=== PATIENT | female | born 1975 | race Two or more races ===

== ENCOUNTER → 2016-10-19 | Outpatient (CLI) | payer BC ==
[~2016-10-19] MED LIST: BUTA-91; HYDR-1421
[2016-10-19 08:40] LABS: Urine Bilirubin Negative (Negative); Urine Blood Negative /uL (Negative); Urine Color Yellow (Yellow); Urine Glucose Normal (Normal); Urine Ketone Negative (Negative); Urine Mucus FEW (None Seen); Urine Nitrite Negative (Negative); Urine RBC 3 /hpf (0 - 4); Urine Squamous Epithelial Cell FEW /hpf (<5); Urine Urobilinogen Normal (Negative)
[2016-10-19 08:41] LABS: Basophils # (auto) 0 uL; Basophils % (auto) 0.6 % (0.0-2.0); CONDITION Y; Eosinophils # (auto) 0.1 uL; Eosinophils % (auto) 1.7 % (0.0-7.0); Hematocrit 41.2 % (36.0-46.0); Hemoglobin 13.9 g/dL (12.2-16.2); Mean Corpuscular Hemoglobin 31.1 pg (28.0-32.0); Mean Corpuscular Hgb Conc. 33.8 g/dL (32.0-36.0); Mean Corpuscular Volume 92.2 fL (80.0-100.0); Monocytes # (auto) 0.6 uL; Monocytes % (auto) 9.3 % (0.0-12.0); Neutrophils # (auto) 3.7 uL; Neutrophils % (auto) 57.4 % (37.0-80.0); Platelet Count (auto) 243 10^3/uL (140-450); White Blood Cell 6.5 10^3/uL (4.4-10.8)
[2016-10-19 08:53] LABS: Albumin 3.8 g/dL (3.4-5.0); BUN/Creatinine Ratio 9.2; Bilirubin, Total 0.4 mg/dL (0.2-1.0); Potassium 4.1 mmol/L (3.5-5.1); Total Protein 7.1 g/dL (6.4-8.2)
== END | disposition home or self-care (01) ==
LOC: LAB 08:00
DX: R53.83 Other fatigue (principal); E56.9 Vitamin deficiency, unspecified
CPT/HCPCS: 36415; 80053; 80061; 81001; 82306; 85025

== ENCOUNTER → 2017-06-21 | Outpatient (CLI) | payer BC ==
[2017-06-21 08:44] LABS: Basophils # (auto) 0.1 uL; Basophils % (auto) 0.8 % (0.0-2.0); Eosinophils # (auto) 0.1 uL; Eosinophils % (auto) 0.8 % (0.0-7.0); Hematocrit 43.7 % (36.0-46.0); Lymphocytes # (auto) 2.4 uL; Lymphocytes % (auto) 31.3 % (10.0-50.0); Mean Corpuscular Hemoglobin 31.2 pg (28.0-32.0); Mean Corpuscular Hgb Conc. 34.2 g/dL (32.0-36.0); Mean Corpuscular Volume 91.3 fL (80.0-100.0); Monocytes # (auto) 0.8 uL; Monocytes % (auto) 9.7 % (0.0-12.0); Neutrophils # (auto) 4.5 uL; Neutrophils % (auto) 57.4 % (37.0-80.0); Platelet Count (auto) 245 10^3/uL (140-450); Red Blood Cells 4.79 10^6/uL (4.0-5.20); White Blood Cell 7.8 10^3/uL (4.4-10.8)
[2017-06-21 09:10] LABS: Albumin 4.2 g/dL (3.4-5.0); BUN/Creatinine Ratio 18.1; Bilirubin, Total 0.9 mg/dL (0.2-1.0); Calcium 9.3 mg/dL (8.5-10.1); Potassium 4.2 mmol/L (3.5-5.1)
== END | disposition home or self-care (01) ==
LOC: LAB 08:08
PROVIDERS: ATTEND Physician Assistant
DX: Z00.01 Encounter for general adult medical examination with abnormal findings (principal); G43.109 Migraine with aura, not intractable, without status migrainosus; M25.571 Pain in right ankle and joints of right foot; G89.29 Other chronic pain; F17.200 Nicotine dependence, unspecified, uncomplicated
CPT/HCPCS: 36415; 80053; 80061; 85025

== ENCOUNTER → 2017-06-27 | Outpatient (CLI) | payer BC ==
[2017-06-27 12:26] LABS: Free T4 (Free Thyroxine) 1.07 ng/dL (0.89-1.76); T3 Total 1.03 ng/mL (0.60-1.81)
[2017-06-27 12:27] LABS: Free T3 2.63 pg/mL (2.3-4.2)
== END | disposition home or self-care (01) ==
LOC: LAB 10:56
PROVIDERS: ATTEND Physician Assistant
DX: G43.109 Migraine with aura, not intractable, without status migrainosus (principal); F17.200 Nicotine dependence, unspecified, uncomplicated; E11.9 Type 2 diabetes mellitus without complications
CPT/HCPCS: 36415; 83036; 84439; 84443; 84480; 84481

== ENCOUNTER → 2017-07-12 | Outpatient (CLI) | payer BC | END | disposition home or self-care (01) | LOC: LAB 07:21 | PROVIDERS: ATTEND Physician Assistant | DX: H54.7 Unspecified visual loss (principal); E11.9 Type 2 diabetes mellitus without complications; G43.109 Migraine with aura, not intractable, without status migrainosus | CPT/HCPCS: 36415; 82565; 84520 ==

== ENCOUNTER → 2018-12-26 | Outpatient (CLI) | payer BC ==
[2018-12-26 08:47] LABS: Basophils # (auto) 0 uL; Basophils % (auto) 0.7 % (0.0-2.0); Eosinophils # (auto) 0 uL; Eosinophils % (auto) 0.7 % (0.0-7.0); Hematocrit 45.2 % (36.0-46.0); Hemoglobin 15.6 g/dL (12.2-16.2); Lymphocytes # (auto) 1.6 uL; Lymphocytes % (auto) 25.6 % (10.0-50.0); Mean Corpuscular Hemoglobin 31.8 pg (28.0-32.0); Mean Corpuscular Hgb Conc. 34.5 g/dL (32.0-36.0); Monocytes # (auto) 0.5 uL; Monocytes % (auto) 7.7 % (0.0-12.0); Neutrophils % (auto) 65.3 % (37.0-80.0); Nucleated Red Blood Cells % 0.1 %; Platelet Count (auto) 237 10^3/uL (140-450); Red Blood Cells 4.91 10^6/uL (4.0-5.20); Red Cell Distribution Width 13.1 % (11.8-14.3); White Blood Cell 6.1 10^3/uL (4.4-10.8)
[2018-12-26 09:07] LABS: Albumin 4.5 g/dL (3.4-5.0); Calcium 9.4 mg/dL (8.5-10.1)
[2018-12-26 09:12] LABS: BUN/Creatinine Ratio 13.4; Bilirubin, Total 0.8 mg/dL (0.2-1.0); Total Protein 7.9 g/dL (6.4-8.2)
[2018-12-26 09:19] LABS: Free T4 (Free Thyroxine) 1.15 ng/dL (0.89-1.76); T3 Total 1.17 ng/mL (0.60-1.81)
[2018-12-27 05:06] LABS: RPR Non Reactive (Non Reactive)
== END | disposition home or self-care (01) ==
LOC: LAB 07:34
PROVIDERS: ATTEND Physician Assistant
DX: Z00.00 Encounter for general adult medical examination without abnormal findings (principal); R53.83 Other fatigue; M17.9 Osteoarthritis of knee, unspecified; F41.9 Anxiety disorder, unspecified; F43.9 Reaction to severe stress, unspecified; I10 Essential (primary) hypertension; F17.210 Nicotine dependence, cigarettes, uncomplicated; Z88.8 Allergy status to other drugs, medicaments and biological substances
CPT/HCPCS: 36415; 80053; 80061; 84439; 84443; 84480; 85025; 86592; 86695; 86696; 86703

== ENCOUNTER → 2019-02-22 | Outpatient (CLI) | payer BC ==
[2019-02-22 16:14] LABS: CRP High Sensitivity 0.3 mg/dL (< 0.3)
== END | disposition home or self-care (01) ==
LOC: LAB 15:14
PROVIDERS: ATTEND Physician Assistant
DX: M06.4 Inflammatory polyarthropathy (principal); R53.83 Other fatigue; H47 Other disorders of optic [2nd] nerve and visual pathways; G89.29 Other chronic pain
CPT/HCPCS: 36415; 82550; 86038; 86141; 86431

== ENCOUNTER → 2019-05-24 | Outpatient (CLI) | payer BC | END | disposition home or self-care (01) | LOC: LAB 10:34 | PROVIDERS: ATTEND Internal Medicine Rheumatology | DX: M32.10 Systemic lupus erythematosus, organ or system involvement unspecified (principal); M05.79 Rheumatoid arthritis with rheumatoid factor of multiple sites without organ or systems involvement; M33.20 Polymyositis, organ involvement unspecified | CPT/HCPCS: 36415; 85652; 86141; 86200 ==

== ENCOUNTER → 2019-09-11 | Outpatient (CLI) | payer OTHER | END | disposition home or self-care (01) | LOC: LAB 16:24 | PROVIDERS: ATTEND Physician Assistant | DX: Z20.828 Contact with and (suspected) exposure to other viral communicable diseases (principal) ==

== ENCOUNTER → 2019-12-30 | Outpatient (CLI) | payer BC ==
[2019-12-30 08:43] LABS: CRP High Sensitivity 0.09 mg/dL (< 0.3)
== END | disposition home or self-care (01) ==
LOC: LAB 07:50
PROVIDERS: ATTEND Internal Medicine Rheumatology
DX: M60.9 Myositis, unspecified (principal)
CPT/HCPCS: 36415; 82550; 85652; 86141

== ENCOUNTER → 2020-02-01 | Outpatient (CLI) | payer OTHER | END | disposition home or self-care (01) | LOC: LAB 13:23 | PROVIDERS: ATTEND Physician Assistant | DX: U07.1 COVID-19 (principal) | CPT/HCPCS: 36415; 87426 ==

== ENCOUNTER 2020-07-24 06:15 | Day surgery (SDC) | payer BC ==
[2020-07-21 11:00] LABS: Basophils # (auto) 0.1 10 ^3/uL (0-0.2); Basophils % (auto) 1.2 % (0.0-2.0); Eosinophils # (auto) 0.1 10 ^3/uL (0-0.8); Eosinophils % (auto) 1.3 % (0.0-7.0); Hematocrit 39.9 % (36.0-46.0); Lymphocytes # (auto) 2.3 10 ^3/uL (0.4-5.4); Lymphocytes % (auto) 34.2 % (10.0-50.0); Mean Corpuscular Hemoglobin 32.4 pg (28.0-32.0); Mean Corpuscular Hgb Conc. 35.2 g/dL (32.0-36.0); Mean Corpuscular Volume 92.1 fL (80.0-100.0); Monocytes # (auto) 0.6 10 ^3/uL (0-1.3); Monocytes % (auto) 9.1 % (0.0-12.0); Neutrophils # (auto) 3.6 10 ^3/uL (1.6-8.6); Neutrophils % (auto) 54.2 % (37.0-80.0); Nucleated Red Blood Cells % 0.1 %; Platelet Count (auto) 249 10^3/uL (140-450); Red Blood Cells 4.33 10^6/uL (4.0-5.20); Red Cell Distribution Width 13.1 % (11.8-14.3); White Blood Cell 6.7 10^3/uL (4.4-10.8)
[2020-07-21 11:15] LABS: INR 0.99 (0.9-1.15); Partial Thromboplastin Time 28.5 sec (23.0-31.2)
[2020-07-21 11:16] LABS: Urine Bacteria NONE SEEN /hpf (None Seen); Urine Blood 3+ /uL (Negative); Urine Mucus FEW (None Seen); Urine Specific Gravity 1.027 (1.001-1.035); Urine WBC 5 /hpf (0 - 5)
[2020-07-21 11:30] LABS: Potassium 4.5 mmol/L (3.5-5.1)
[2020-07-21 11:36] LABS: BUN/Creatinine Ratio 22.2; Bilirubin, Total 0.4 mg/dL (0.2-1.0); Calcium 8.7 mg/dL (8.5-10.1); Total Protein 7.5 g/dL (6.4-8.2)
[~2020-07-24] VITALS: Ht 160 cm; Wt 87.1 kg
[~2020-07-24 06:15] MED LIST changes: +ASPITAB34 PO; -BUTA-91; -HYDR-1421; +HYDR-4069 PO; +IBUP200C14 PO
[2020-07-24] MEDS ORDERED: ceFAZolin 1GM/50ML 100 ML IV ONE (06:36)
[2020-07-24] MEDS ORDERED: LIDOCAINE 1% HCL (LOCAL ANESTH.) INJ 20ML MDV ONE (06:49)
[2020-07-24] MEDS ORDERED: fentaNYL CITRATE 100 MCG/2 ML VL ONE (07:07)
[2020-07-24] MEDS ORDERED: MEPERIDINE HCL (25 MG/ML) 1ML VIAL ONE (07:07)
[2020-07-24] MEDS ORDERED: ONDANSETRON HCL 4 MG/2 ML VIAL ONE (07:07)
[2020-07-24] MEDS ORDERED: MIDAZOLAM HCL 1MG/1ML-2 ML VIAL ONE (07:07)
[2020-07-24] MEDS ORDERED: PROPOFOL 10 MG/ML 20 ML IV ONE (07:07)
[2020-07-24] MEDS ORDERED: SODIUM CHLORIDE LOCK 10 ML ONE (07:07)
[2020-07-24] MEDS ORDERED: MORPHINE SULF INJ 2 MG/ML SYRINGE 1ML IV PRN (07:15)
[2020-07-24] MEDS ORDERED: HYDROmorphone HCL 2 MG/ML VL IV PRN (07:15)
[2020-07-24] MEDS ORDERED: ONDANSETRON HCL 4 MG/2 ML VIAL IV PRN ×2 (07:15→08:15)
[2020-07-24] MEDS ORDERED: DexAMETHasone SOD PHOS 10MG/1ML VIAL INJ ONE (07:32)
[2020-07-24] MEDS ORDERED: LACTATED RINGER'S 1,000 ML IV SCH (08:15)
[2020-07-24 08:30] VITALS: BP 138/69
== END 2020-07-24 08:50 | disposition home or self-care (01) ==
LOC: SUR 06:15
PROVIDERS: ATTEND Obstetrics & Gynecology
DX: N93.8 Other specified abnormal uterine and vaginal bleeding (principal); F17.200 Nicotine dependence, unspecified, uncomplicated; G43.909 Migraine, unspecified, not intractable, without status migrainosus; E66.01 Morbid (severe) obesity due to excess calories; I10 Essential (primary) hypertension; Z20.822 Contact with and (suspected) exposure to COVID-19; Z98.890 Other specified postprocedural states; Z88.8 Allergy status to other drugs, medicaments and biological substances; Z68.34 Body mass index [BMI] 34.0-34.9, adult; Z79.899 Other long term (current) drug therapy
CPT/HCPCS: 36415; 58558; 80053; 81001; 81025; 84702; 85025; 85610; 85730; 86850; 86900; 86901; J0690; J1100; J2001; J2175; J2250; J2405; J2704; J3010; U0003